=== PATIENT | male | born 1970 | race Caucasian/White ===

== ENCOUNTER 2018-07-04 16:06 | Emergency (ER) | payer SELFPAY ==
[~2018-07-04] VITALS: Ht 175.3 cm; Wt 77.1 kg
[2018-07-04] MEDS ORDERED: SODIUM CHLORIDE 0.9% 1,000 ML IVB ONE (17:40)
[2018-07-04] MEDS ORDERED: ONDANSETRON HCL 4 MG/2 ML VIAL IV ONE (17:45)
[2018-07-04 17:55] LABS: Basophils # (auto) 0.1 uL; Basophils % (auto) 0.8 % (0.0-2.0); Eosinophils # (auto) 0.1 uL; Eosinophils % (auto) 0.5 % (0.0-7.0); Hematocrit 48.3 % (41.0-53.0); Hemoglobin 16.5 g/dL (13.5-17.5); Lymphocytes # (auto) 0.3 uL; Lymphocytes % (auto) 2.4 % (10.0-50.0); Mean Corpuscular Hemoglobin 32.2 pg (28.0-32.0); Mean Corpuscular Hgb Conc. 34.2 g/dL (32.0-36.0); Mean Corpuscular Volume 94.1 fL (80.0-100.0); Monocytes # (auto) 0.9 uL; Monocytes % (auto) 6.8 % (0.0-12.0); Neutrophils # (auto) 11.2 uL; Neutrophils % (auto) 89.5 % (37.0-80.0); Platelet Count (auto) 209 10^3/uL (140-450); Red Blood Cells 5.13 10^6/uL (4.5-5.90); Red Cell Distribution Width 13.3 % (11.8-14.3); White Blood Cell 12.5 10^3/uL (4.4-10.8)
[2018-07-04 18:07] LABS: Alanine Aminotransferase 67 U/L (16-61); Anion Gap 5 (5-15); Aspartate Aminotransferase 37 U/L (15-37); BUN/Creatinine Ratio 24.3; Blood Urea Nitrogen 25 mg/dL (7-18); Calcium 8.1 mg/dL (8.5-10.1); Carbon Dioxide 29 mmol/L (21-32); Chloride 106 mmol/L (98-107); GFR African American > 60 mL/min; GFR Non-African American > 60 mL/min; Glucose 100 mg/dL (74-106); INR 0.96 (0.9-1.15); Partial Thromboplastin Time 24.3 sec (23.78-33.04); Potassium 4.7 mmol/L (3.5-5.1); Prothrombin Time 10.3 sec (9.27-12.13); Sodium 140 mmol/L (136-145)
[2018-07-04 18:08] LABS: Magnesium 2.1 mg/dL (1.6-2.6)
[2018-07-04 18:10] LABS: Alkaline Phosphatase 87 U/L (45-117); Total Protein 7.7 g/dL (6.4-8.2)
[2018-07-04 22:06] LABS: Alcohol, Urine < 3.0 mg/dL (0-5); Amphetamine Screen, Urine POSITIVE (NEGATIVE); Barbiturate Scree,Urine NEGATIVE (NEGATIVE); Benzodiazephine Screen, Urine NEGATIVE (NEGATIVE); Cannabinoid Screen, Urine NEGATIVE (NEGATIVE); Cocaine Screen, Urine NEGATIVE (NEGATIVE); Opiate Scree,Urine NEGATIVE (NEGATIVE); Phencyclidine Screen, Urine NEGATIVE (NEGATIVE)
[2018-07-04 23:00] VITALS: BP 110/68
== END 2018-07-04 22:25 | disposition home or self-care (01) ==
LOC: ER 16:06
DX: F15.10 Other stimulant abuse, uncomplicated (principal); R11.2 Nausea with vomiting, unspecified; F41.9 Anxiety disorder, unspecified; F17.210 Nicotine dependence, cigarettes, uncomplicated; F12.10 Cannabis abuse, uncomplicated
CPT/HCPCS: 36415; 71045; 80053; 80307; 82150; 83690; 83735; 85025; 85610; 85730; 94761; 96361; 96374; 99284; J2405; J7030

== ENCOUNTER 2024-04-04 06:28 | Emergency (ER) | payer MEDICAID, OTHER ==
[~2024-04-04] VITALS: Ht 175.3 cm; Wt 69.8 kg
[2024-04-04 07:42] VITALS: BP 131/84; PULSE 86; RESP 16; TEMP 97; O2SAT 98
[2024-04-04] MEDS ORDERED: IBUP1TAB5 PO (08:08)
[2024-04-04] MEDS ORDERED: BACDST PO (08:08)
[2024-04-04] MEDS ORDERED: CEPH500T PO (08:08)
[2024-04-04] MEDS: cefTRIAXone SOD 1,000 MG VL IM ONE (08:15)
== END 2024-04-04 08:19 | disposition left against medical advice (07) ==
LOC: ER 06:28
DX: M23.91 Unspecified internal derangement of right knee (principal); F17.210 Nicotine dependence, cigarettes, uncomplicated; F15.90 Other stimulant use, unspecified, uncomplicated; Z79.1 Long term (current) use of non-steroidal anti-inflammatories (NSAID); Z79.899 Other long term (current) drug therapy
CPT/HCPCS: 96372; 99283; J0696